=== PATIENT | male | born 1995 | race Caucasian/White ===

== ENCOUNTER 2022-12-19 13:23 | Outpatient (AMB) | payer OTHER, SELFPAY ==
--- NOTE | 2022-12-19 13:25 | MHC.PC.OV ---
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 Allergies No Known Allergies Allergy (Verified 12/19/22 13:27) Medication List - Last Reconciled 12/19/22 by Amanda Arroyo MD No Known Home Meds Tobacco use date assessed: 12/19/22 Dental Screening Dental Screen Date: 12/19/22 Did you have a dental visit in the last 12 months?: Yes Did you have a dental problem in the last 6 months where you did not have access to dental care?: No Was dental information given to patient?: Patient has dentist 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 Patient says that he is required to she at work. 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 Lab order placed to be done fasting patient have a family history of diabetes and heart disease His blood pressure is 132/86 we will keep an eye [facility] Social History Housing: House Patient Tobacco Use Status: Never used Tobacco e-Cigarette/Vaping Use: Former Use service: Yes Current occupational status: employed Cognitive needs: No Hearing needs: No Vision needs: No Questionnaire PHQ-9 Over the last 2 weeks, how often have you been bothered by any of the following problems? 1. Little interest or pleasure in doing things: not at all 2. Feeling down, depressed, or hopeless: not at all 3. Trouble falling or staying asleep, or sleeping too much: several days 4. Feeling tired or having little energy: several days 5. Poor appetite or overeating: not at all 6. Feeling bad about yourself - or that you are a failure or have let yourself or your family down: not at all 7. Trouble concentrating on things, such as reading the newspaper or watching television: not at all 8. Moving or speaking so slowly that other people could have noticed. Or the opposite - being so fidgety or restless that you have been moving around a lot more than usual: not at all 9. Thoughts that you would be better off or of hurting yourself in some way: not at all Total score: 2 Depression Screening Interpretation: Negative Depression Screening Done: Yes 11552 - PHQ-9 Billing: Yes Source: Developed by Drs. Eliazar Salazar, Gladys Moctezuma, Norbert Byrd and colleagues, with an educational julee from [employer]. Thrive Questionnaire Date Thrive assessed: 12/19/22 I am a: Patient What is your living situation today?: I have a steady place to live Within the past 12 months, did the food you bought not last and you didn't have the money to get more?: Never true Within the past 12 months, did you worry whether your food would run out before you got money to buy more?: Never true Do you have trouble paying for medicines?: No Do you have trouble getting transportation to medical appointments?: No Do you have trouble paying your heating and electricity bill?: No Do you have trouble taking care of your child, family member or friend?: No Do you have trouble with day-to-day activities such as bathing, preparing meals, shopping, managing finances, etc.?: No Are you currently unemployed and looking for a job?: No Are you interested in more education?: Yes AUDIT C Alcohol Use Questionnaire (AUDIT-C) 1. How often do you have a drink containing alcohol?: Monthly or less 2. How many drinks containing alcohol do you have on a typical day when you are drinking?: 1 or 2 3. How often do you have six or more drinks on one occasion?: Never Total Score: 1 Score Reviewed/Action Taken: Yes CHIN-7 AMB Questionnaire CHIN-7 Date CHIN - 7 assessed: 12/19/22 Feeling nervous, anxious, or on edge: 0 = Not at all Not being able to stop or control worryin = Not at all Worrying too much about different things: 0 = Not at all Trouble relaxin = Not at all Being so restless that it is hard to sit still: 0 = Not at all Becoming easily annoyed or irritable: 0 = Not at all Feeling afraid as if something awful might happen: 0 = Not at all Total CHIN-7 score (0-4 normal; 5-9 mild; 10-14 moderate; 15-21 severe): 0 Source: Developed by Drs. Eliazar Salazar, Gladys Moctezuma, Norbert Byrd and colleagues, with an educational julee from [employer]. CHIN-7 Assessment Billing CHIN-7 Assessment Tool: CHIN-7 Assessment 45477 Review of Systems Const Denies chills, Denies fever(s) and Denies headache(s) Eyes Denies blurry vision ENT Denies headache(s), Denies nasal discharge, Denies nasal obstruction, Denies odynophagia and Denies sinus pain Card Denies chest pain at rest and Denies chest pain with activity Resp Denies cough and Denies hemoptysis GI Denies diarrhea, Denies odynophagia, Denies vomiting and Denies hematemesis Reports as per HPI Musc Denies abnormal gait Skin/Breast Reports as per HPI Neuro Denies Neuro-related abnormal movements, Denies Abnormal speech present, Denies abnormal gait, Denies headache(s) and Denies Sensory deficit (Neuro) Psych Denies mood swings and Denies paranoia Endo Reports as per HPI Joaquin/Lymph Reports as per HPI Aller/Immun Reports as per HPI Physical exam (Primary Care) Vital Signs: Last Vital Signs Pulse 60 12/19/22 13:26 BP 132/86 12/19/22 13:26 Pulse Ox 96 12/19/22 13:26 Oxygen Delivery Method Room Air 12/19/22 13:26 BMI result Body Mass Index 26.2 Tobacco/Smoking Status: Tobacco use Status Tobacco use date assessed 12/19/22 12/19/22 13:29 Patient Tobacco Use Status Never used Tobacco 12/19/22 13:29 e-Cigarette/Vaping Use Former Use 12/19/22 13:29 PHQ-9: PHQ-9 Score PHQ-9: Total score 2 12/19/22 13:58 Depression Screening Interpretation: Negative Thrive Assessment: Date of Thrive Assessment Date Thrive assessed 12/19/22 12/19/22 13:58 Const General: cooperative, comfortable and no acute distress Orientation/consciousness: patient oriented x3 HENMT Head: Yes normocephalic and Yes atraumatic Eyes General: appearance normal, both eyes and all related structures Pupils: Equal, round and reactive pupils present EOM: EOMs intact bilaterally Neck Neck: Yes supple and No lymphadenopathy Thyroid: Thyroid normal Lymphatic: no lymphadenopathy noted Resp Effort & Inspection: normal respiratory effort and able to speak in complete sentences Auscultation: clear to auscultation bilaterally Cardio Heart sounds: S1 normal heart sound present and S2 normal heart sound present GI Palpation (GI): Soft to palpation and nontender Auscultation: normal bowel sounds General: Yes no CVA tenderness Back/Spine/Pelvis Back: no CVA tenderness Skin Other: Dermatitis rash over chin and cheeks, different sizes of moves in the back some irregular General skin exam: elasticity normal and turgor normal Neuro General: patient oriented x3 and gait normal Cranial nerves: Yes Equal, round and reactive pupils present Speech: No Abnormal speech present Sensory Exam: No Sensory deficit (Neuro) Coordination: tandem gait normal and Romberg test negative Extrem General: Yes normal exam except as noted and No edema Assessment and Plan Assessment & Plan (1) Encounter for general adult medical examination with abnormal findings: Code(s): Z00.01 - Encounter for general adult medical examination with abnormal findings (2) Dermatitis of face: Code(s): L30.9 - Dermatitis, unspecified (3) Change in mole: Code(s): D22.9 - Melanocytic nevi, unspecified (4) Family history of diabetes mellitus: Code(s): Z83.3 - Family history of diabetes mellitus (5) Family history of heart disease: Code(s): Z82.49 - Family history of ischemic heart disease and other diseases of the circulatory system Plan Patient is 27-year-old gentleman came in today for his initial establish care visit and physical examination Patient has developed dermatitis on his face secondary to shaving he is requesting a letter to be exempted from shaving. Patient says that he is required to she at work. 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 Lab order placed to be done fasting patient have a family history of diabetes and heart disease His blood pressure is 132/86 we will keep an eye Orders: Orders Complete Blood Count Auto Diff Today L30.9 - Dermatitis, unspecified, Z00.01 - Encounter for general adult medical examination with abnormal findings, Z82.49 - Family history of ischemic heart disease and other diseases of the circulatory system, Z83.3 - Family history of diabetes mellitus Lipid Panel Today L30.9 - Dermatitis, unspecified, Z00.01 - Encounter for general adult medical examination with abnormal findings, Z82.49 - Family history of ischemic heart disease and other diseases of the circulatory system, Z83.3 - Family history of diabetes mellitus Comprehensive [place]. Panel Fast Today L30.9 - Dermatitis, unspecified, Z00.01 - Encounter for general adult medical examination with abnormal findings, Z82.49 - Family history of ischemic heart disease and other diseases of the circulatory system, Z83.3 - Family history of diabetes mellitus Referrals Dermatology Referral D22.9 - Melanocytic nevi, unspecified, Z12.83 - Encounter for screening for malignant neoplasm of skin Coding Level of Care Code New Pt Prev Care 18-39yr([id number] Diagnoses Encounter for general adult medical examination with abnormal findings Z00.01 Dermatitis of face L30.9 Change in mole D22.9 Family history of diabetes mellitus Z83.3 Family history of heart disease Z82.49 Additional Codes CHIN-7 Assessment Billing - CHIN-7 Assessment Tool: CHIN-7 Assessment 18763 ([id number])
[2022-12-19 13:26] VITALS: BP 132/86; PULSE 60; O2SAT 96; BMI 26.2
== END 2022-12-19 14:30 | disposition home or self-care (01) ==
PROVIDERS: PCP Internal Medicine; Visit Provider Internal Medicine
DX: Z00.01 Encounter for general adult medical examination with abnormal findings (principal); L30.9 Dermatitis, unspecified; D22.9 Melanocytic nevi, unspecified; Z83.3 Family history of diabetes mellitus; Z82.49 Family history of ischemic heart disease and other diseases of the circulatory system
CPT/HCPCS: 99385

== ENCOUNTER 2024-02-05 13:57 | Outpatient (AMB) | payer OTHER, SELFPAY ==
[2024-02-05 13:59] VITALS: BP 118/78; PULSE 74; O2SAT 98; BMI 27.9
--- NOTE | 2024-02-05 13:59 | MHC.PC.OV ---
Vital Signs 02/05/24 13:59 Height 6 ft 2 in Weight 217 lb 6 oz BMI 27.9 BP 118/78 Blood Pressure Location Rt brachial Position Sitting Pulse 74 Pulse Source Pulse Oximeter Pulse Oximetry (%) 98 Oxygen Delivery Method Room Air Intake Visit Reasons: Annual PE Allergies No Known Allergies Allergy (Verified 02/05/24 13:59) Medication List - Last Reconciled 02/05/24 by Amanda Arroyo MD No Known Home Meds Tobacco use date assessed: 02/05/24 Dental Screening Dental Screen Date: 02/05/24 Did you have a dental visit in the last 12 months?: Yes Did you have a dental problem in the last 6 months where you did not have access to dental care?: No Was dental information given to patient?: Patient has dentist HPI Annual PE HPI Details Chief Complaint The patient reports experiencing chronic fatigue and fragmented sleep for several months. Came in today for physical exam Health Maintenance - Immunizations up-to-date, including tetanus - Discussion on improving sleep hygiene - Plan for laboratory evaluations including fasting blood tests to assess vitamin deficiencies and renal and hepatic function - Referral to dermatology for evaluation of multiple nevi Assessment and Plan 28-year-old male with a history of fragmented sleep patterns and significant fatigue presenting for a wellness visit. 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 Current sleep pattern involves fragmented sleep with interruptions. No current symptoms of nausea, vomiting, diarrhea, or respiratory and cardiac concerns. Immunizations are up-to-date. Notable presence of multiple nevi potentially requiring dermatology evaluation. 1. Multiple Nevi The patient noted a family history of multiple nevi, observing a potential increase in size over time. A dermatology referral has been issued to evaluate and assess for any atypical features requiring intervention. 2. Fatigue The patient reports feeling consistently fatigued due to a potential lack of adequate sleep. A change in work shift may have compounded sleep disruption. Labs including fasting tests will be conducted to rule out nutrient deficiencies or organ dysfunction. Sleep hygiene improvements were discussed. 3. Sleep Disturbance The patient has altered sleep schedules with no consistent eight-hour rest period. Suggestions include improving sleep hygiene and consistency in sleep and wake times given his new shift schedule. Document any further concerns with nocturnal waking after allowing time for sleep adjustments. Patient Instructions - Implement sleep hygiene practices, aiming for a consistent sleep schedule based on current work requirements. - Fast for at least 10 hours before the scheduled blood test to ensure accurate results. - Follow up with the dermatology referral for nevi assessment. - Provide email details for access to the patient portal to receive lab instructions and results notification. - Await communication for further instructions regarding dermatology consults and any lab abnormalities. [facility] Social History Housing: House Patient Tobacco Use Status: Never used Tobacco e-Cigarette/Vaping Use: Former Use service: Yes Current occupational status: employed Cognitive needs: No Hearing needs: No Vision needs: No Questionnaire PHQ-9 Over the last 2 weeks, how often have you been bothered by any of the following problems? 1. Little interest or pleasure in doing things: not at all 2. Feeling down, depressed, or hopeless: not at all 3. Trouble falling or staying asleep, or sleeping too much: several days 4. Feeling tired or having little energy: several days 5. Poor appetite or overeating: several days 6. Feeling bad about yourself - or that you are a failure or have let yourself or your family down: not at all 7. Trouble concentrating on things, such as reading the newspaper or watching television: not at all 8. Moving or speaking so slowly that other people could have noticed. Or the opposite - being so fidgety or restless that you have been moving around a lot more than usual: not at all 9. Thoughts that you would be better off or of hurting yourself in some way: not at all Total score: 3 Depression Screening Interpretation: Negative Depression Screening Done: Yes 67406 - PHQ-9 Billing: Yes Source: Developed by Drs. Eliazar Salazar, Gladys Moctezuma, Norbert Byrd and colleagues, with an educational julee from [employer]. Thrive Questionnaire Date Thrive assessed: 02/05/24 I am a: Patient What is your living situation today?: I have a steady place to live Within the past 12 months, did the food you bought not last and you didn't have the money to get more?: Never true Within the past 12 months, did you worry whether your food would run out before you got money to buy more?: Never true Do you have trouble paying for medicines?: No Do you have trouble getting transportation to medical appointments?: No Do you have trouble paying your heating and electricity bill?: No Do you have trouble taking care of your child, family member or friend?: No Do you have trouble with day-to-day activities such as bathing, preparing meals, shopping, managing finances, etc.?: No Are you currently unemployed and looking for a job?: No Are you interested in more education?: I choose not to answer this question Please select the resources that you would like help with: None Currently or been in a relationship where the following occur: No concerns reported THRIVE Score: 0 AUDIT C Alcohol Use Questionnaire (AUDIT-C) 1. How often do you have a drink containing alcohol?: Monthly or less 2. How many drinks containing alcohol do you have on a typical day when you are drinking?: 1 or 2 3. How often do you have six or more drinks on one occasion?: Less than monthly Total Score: 2 Score Reviewed/Action Taken: Yes CHIN-7 AMB Questionnaire CHIN-7 Date CHIN - 7 assessed: 02/05/24 Feeling nervous, anxious, or on edge: 0 = Not at all Not being able to stop or control worryin = Not at all Worrying too much about different things: 0 = Not at all Trouble relaxin = Not at all Being so restless that it is hard to sit still: 0 = Not at all Becoming easily annoyed or irritable: 0 = Not at all Feeling afraid as if something awful might happen: 0 = Not at all Total CHIN-7 score (0-4 normal; 5-9 mild; 10-14 moderate; 15-21 severe): 0 Source: Developed by Drs. Eliazar Salazar, Gladys Moctezuma, Norbert Byrd and colleagues, with an educational julee from [employer]. CHIN-7 Assessment Billing CHIN-7 Assessment Tool: CHIN-7 Assessment 55046 Review of Systems Const Denies chills, Denies fever(s) and Denies headache(s) Eyes Denies blurry vision ENT Denies headache(s), Denies nasal discharge, Denies nasal obstruction, Denies odynophagia and Denies sinus pain Card Denies chest pain at rest and Denies chest pain with activity Resp Denies cough and Denies hemoptysis GI Denies diarrhea, Denies odynophagia, Denies vomiting and Denies hematemesis Reports as per HPI Musc Denies abnormal gait Skin/Breast Reports as per HPI Neuro Denies Neuro-related abnormal movements, Denies Abnormal speech present, Denies abnormal gait, Denies headache(s) and Denies Sensory deficit (Neuro) Psych Denies mood swings and Denies paranoia Endo Reports as per HPI Joaquin/Lymph Reports as per HPI Aller/Immun Reports as per HPI Physical exam (Primary Care) Vital Signs: Last Vital Signs Pulse 74 02/05/24 13:59 BP 118/78 02/05/24 13:59 Pulse Ox 98 02/05/24 13:59 Oxygen Delivery Method Room Air 02/05/24 13:59 BMI result Body Mass Index 27.9 Tobacco/Smoking Status: Tobacco use Status Tobacco use date assessed 02/05/24 02/05/24 14:01 Patient Tobacco Use Status Never used Tobacco 02/05/24 14:01 e-Cigarette/Vaping Use Former Use 02/05/24 14:01 PHQ-9: PHQ-9 Score PHQ-9: Total score 3 02/05/24 14:01 Depression Screening Interpretation: Negative Thrive Assessment: Date of Thrive Assessment Date Thrive assessed 02/05/24 02/05/24 14:01 Currently or been in a relationship where the following occur: No concerns reported Const General: cooperative, comfortable and no acute distress Orientation/consciousness: patient oriented x3 HENMT Head: Yes normocephalic and Yes atraumatic Eyes General: appearance normal, both eyes and all related structures Pupils: Equal, round and reactive pupils present EOM: EOMs intact bilaterally Neck Neck: Yes supple and No lymphadenopathy Thyroid: Thyroid normal Lymphatic: no lymphadenopathy noted Resp Effort & Inspection: normal respiratory effort and able to speak in complete sentences Auscultation: clear to auscultation bilaterally Cardio Heart sounds: S1 normal heart sound present and S2 normal heart sound present GI Palpation (GI): Soft to palpation and nontender Auscultation: normal bowel sounds General: Yes no CVA tenderness Back/Spine/Pelvis Back: no CVA tenderness Skin Other: Multiple nevi in the back different shape and size General skin exam: elasticity normal and turgor normal Neuro General: patient oriented x3 and gait normal Cranial nerves: Yes Equal, round and reactive pupils present Speech: No Abnormal speech present Sensory Exam: No Sensory deficit (Neuro) Coordination: tandem gait normal and Romberg test negative Extrem General: Yes normal exam except as noted and No edema Coding Level of Care Code Est Pt Level 3 (44314) Est Pt Prev Care 18-39y(66652) Diagnoses Encounter for general adult medical examination with abnormal findings Z00.01 Tired R53.83 Lack of adequate sleep Z72.820 Skin cancer screening Z12.83 Additional Codes CHIN-7 Assessment Billing - CHIN-7 Assessment Tool: CHIN-7 Assessment 65569 ([id number]) PHQ-9 - 76548 - PHQ-9 Billing: Yes ([id number]) Assessment & Plan Assessment & Plan (1) Encounter for general adult medical examination with abnormal findings: Code(s): Z00.01 - Encounter for general adult medical examination with abnormal findings Category: Medical (2) Tired: Code(s): R53.83 - Other fatigue Category: Medical (3) Lack of adequate sleep: Code(s): Z72.820 - Sleep deprivation Category: Social Hx (4) Skin cancer screening: Code(s): Z12.83 - Encounter for screening for malignant neoplasm of skin Category: Medical Plan Chief Complaint The patient reports experiencing chronic fatigue and fragmented sleep for several months. Came in today for physical exam Health Maintenance - Immunizations up-to-date, including tetanus - Discussion on improving sleep hygiene - Plan for laboratory evaluations including fasting blood tests to assess vitamin deficiencies and renal and hepatic function - Referral to dermatology for evaluation of multiple nevi Assessment and Plan 28-year-old male with a history of fragmented sleep patterns and significant fatigue presenting for a wellness visit. 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 Current sleep pattern involves fragmented sleep with interruptions. No current symptoms of nausea, vomiting, diarrhea, or respiratory and cardiac concerns. Immunizations are up-to-date. Notable presence of multiple nevi potentially requiring dermatology evaluation. 1. Multiple Nevi The patient noted a family history of multiple nevi, observing a potential increase in size over time. A dermatology referral has been issued to evaluate and assess for any atypical features requiring intervention. 2. Fatigue The patient reports feeling consistently fatigued due to a potential lack of adequate sleep. A change in work shift may have compounded sleep disruption. Labs including fasting tests will be conducted to rule out nutrient deficiencies or organ dysfunction. Sleep hygiene improvements were discussed. 3. Sleep Disturbance The patient has altered sleep schedules with no consistent eight-hour rest period. Suggestions include improving sleep hygiene and consistency in sleep and wake times given his new shift schedule. Document any further concerns with nocturnal waking after allowing time for sleep adjustments. Patient Instructions - Implement sleep hygiene practices, aiming for a consistent sleep schedule based on current work requirements. - Fast for at least 10 hours before the scheduled blood test to ensure accurate results. - Follow up with the dermatology referral for nevi assessment. - Provide email details for access to the patient portal to receive lab instructions and results notification. - Await communication for further instructions regarding dermatology consults and any lab abnormalities. Orders: Orders Complete Blood Count Auto Diff Today R53.83 - Other fatigue, Z00.01 - Encounter for general adult medical examination with abnormal findings, Z72.820 - Sleep deprivation TSH reflex Free T4 Today R53.83 - Other fatigue, Z00.01 - Encounter for general adult medical examination with abnormal findings, Z72.820 - Sleep deprivation UA CC w/rflx Micro + Cult Today R53.83 - Other fatigue, Z00.01 - Encounter for general adult medical examination with abnormal findings, Z72.820 - Sleep deprivation Testosterone, Total Today R53.83 - Other fatigue Comprehensive [place]. Panel Fast Today R53.83 - Other fatigue, Z00.01 - Encounter for general adult medical examination with abnormal findings, Z72.820 - Sleep deprivation Lipid Panel Today R53.83 - Other fatigue, Z00.01 - Encounter for general adult medical examination with abnormal findings, Z72.820 - Sleep deprivation Vitamin D 25-OH (D2 and D3) Today R53.83 - Other fatigue, Z00.01 - Encounter for general adult medical examination with abnormal findings, Z72.820 - Sleep deprivation Vitamin B12 Today R53.83 - Other fatigue, Z00.01 - Encounter for general adult medical examination with abnormal findings, Z72.820 - Sleep deprivation Referrals Dermatology Referral Z12.83 - Encounter for screening for malignant neoplasm of skin
--- OUTSIDE RECORDS SUMMARY | 2024-02-11 20:41 | XMS_ITS | Continuity of Care Document ---
Author Name [facility] Organization [facility] Care Team Providers Care Director Digital Catalogue Name Role Phone [facility] Unavailable Unavailable Immunizations Combined list of available immunizations from the Department of Defense and Veterans Affairs facilities. Immunization Series Date Given Administered By Site Reaction Lot Number CVX Code Drug Administrative Analyst Status Comments Source influenza virus vaccine, inactivated 2023 KAYLEEN S Shoul keely, left (delt oid) [id number] [employer] complet ed influenza virus vaccine, inactivat ed 12/07/23 Given 8344R-4 39 AMDS influenza, injectable, quadrivalent- pf 2022 MICHELLEACASC IO [id number] 150 complet ed Result Comment: Route: Unknown Manufactu rer: OT (SEQ) 8344R-4 39 AMDS influenza, injectable, quadrivalent- pf 2021 MICHELLEACASC IO [id number] 150 complet ed Result Comment: Route: Unknown Manufactu rer: OT (SKB) 8344R-4 39 AMDS COVID-19, mRNA, LNP-S, PF, 30 mcg/0.3 mL dose, nataliia-sucrose 2021 [employer]OXO, [employer] (PFR) Not Given COVID-19, mRNA, LNP-S, PF, 30 mcg/0.3 mL dose, nataliia-sucr ose DoD SARS-CoV-2 mRNA(toziname hzy-zfjg-fgr) vac 2021 MICHELLEACASC IO 217 complet ed Result Comment: Unit: Unknown Manufactu rer: [employer]u [employer] [place] (PFR) 8344R-4 39 AMDS Tdap 2021 BOGDASARIAN, () Not Given Tdap DoD influenza virus vaccine, inactivated 2020 MICHELLEACASC IO [id number] 88 complet ed Result Comment: Route: Unknown Manufactu rer: OT (SEQ) 8344R-4 39 AMDS COVID Vaccine Pfizer 2020 MICHELLEACASC IO [id number] 208 complet ed Result Comment: Route: Unknown Manufactu rer: [facility] (PFR) 8344R-4 39 AMDS COVID Vaccine Pfizer 2020 [facility] IO [id number] 208 complet ed Result Comment: Route: Unknown Manufactu rer: [facility] (PFR) 8344R-4 39 AMDS influenza, injectable, quadrivalent- pf 2019 [facility] IO [id number] 150 complet ed Result Comment: Route: Unknown Manufactu rer: [facility] (SEQ) 8344R-4 39 AMDS hepatitis A-hepatitis B vaccine 2019 [facility] IO [id number] 104 complet ed Result Comment: Route: Unknown Manufactu rer: [facility] (SKB) 8344R-4 39 AMDS measles/mumps /rubella virus vaccine 2019 [id number] [employer] Inc complet ed measles/m umps/rube lla virus vaccine 07/09/19 Given Ambulat ory Pharmac y hepatitis A-hepatitis B vaccine 2019 [id number] GlaxoSmithKli ne complet ed hepatitis A-hepatit is B vaccine 07/09/19 Given Ambulat ory Pharmac y measles/mumps /rubella virus vaccine 2019 [id number] [employer] Inc complet ed measles/m umps/rube lla virus vaccine 06/09/19 Given Ambulat ory Pharmac y hepatitis A-hepatitis B vaccine 2019 [id number] GlaxoSmithKli ne complet ed hepatitis A-hepatit is B vaccine 06/09/19 Given Ambulat ory Pharmac y tetanus, diphtheria, acellular pertu is 2019 [id number] 115 GlaxoSmithK[employer] ne complet ed tetanus, diphtheri a, acellular pertussis 05/23/19 Given Ambulat ory Pharmac y poliovirus vaccine, inactivated 2019 [id number] 10 sanofi pasteur complet ed polioviru s vaccine, inactivat ed 05/23/19 Given Ambulat ory Pharmac y adenovirus vaccine, live 2019 [id number] 143 Teva Pharm[employer] ls complet ed adenoviru s vaccine, live 05/23/19 Given Ambulat ory Pharmac y meningococcal A,C,Y,W-135 (MCV4P) 2019 [id number] 114 sanofi pasteur complet ed meningoco ccal A,C,Y,W-1 35 (MCV4P) 05/23/19 Given Ambulat ory Pharmac y influenza, injectable, quadrivalent- pf 2019 [id number] 150 Se[employer] complet ed influenza , injectabl e, quadrival ent-pf 03/15/19 Given Ambulat ory Pharmac y Results Combined list of recent chemistry, hematology and other laboratory results from [facility] of [facility] and [facility] [employer], ranging from 15 months to all on record, depending upon the facility. Order Name Results Value Reference Range Date Interpretation Specimen Comments Source Infectio us Disease HIV-1/O/2 Non-Reac tive 1 (05/11/23 2:26 PM) 05/10 N Interpretiv e Data: INTERPRETAT ION: This method is a screening procedure for the detection of HIV p24 Antigen and Antibodies to HIV-1, including Group O, and/or HIV-2. NON-REACTIV E: HIV-1 antigen and HIV-1 / HIV-2 antibodies were not detected. No laboratory evidence of HIV infection. A negative test result does not exclude the possibility of exposure to or infection with HIV. HIV antibodies and/or p24 antigen may be undetectabl e in some stages of the infection and in some clinical conditions. If acute HIV infection is suspected, consider submitting another specimen to a reference laboratory for HIV-1 RNA. SCREEN REACTIVE - CONFIRMATIO N TO FOLLOW: Possible presence of HIV-1antibo dies, HIV-2 antibodies and/or HIV-1 p24 antigen. Specimen will reflex to the confirmatio n testing that fulfills the Center for Disease Control and Prevention' s HIV diagnostic algorithm. Refer to [facility] Lab Guide for additional information : [email or web address] x Testing performed by Ken[facility] j[facility] Libbycella jillian Sendouts Repository Sample Received (05/11/23 2:26 PM) 05/10 N [facility] Vital Signs Combined list of inpatient and outpatient Vital Signs from [facility], ranging from 12 months to all on record, depending upon the facility. Vital Sign Value Date Comments Source No data available for this section Ambulatory Pharmacy Encounters Combined list of: 1) Encounters from Department of Veterans Affairs facilities going back up to thelast 18 months. 2) Encounters from the Department of [facility] facilities going back up to 280 months. Location Location Details Encounter Type Encounter Number Reason For Visit Attending Provider ADM Date DC Date Status Disposition Source 8344R-439 AMDS Outpatient [id number] KARTIK MEDINA 05/10 Discharge Disposition: Home or Self Care 8344R-4 39 AMDS 8344R-439 AMDS Clinic [id number] KARTIK MEDINA 09/25 Discharge Disposition: Home or Self Care 8344R-4 39 AMDS 8344R-439 AMDS Care Not Rendered [id number] 12/06 Discharge Disposition: Home or Self Care 8344R-4 39 AMDS 8344R-439 AMDS Dental [id number] DUNG MYDOAN 12/06 Discharge Disposition: Home or Self Care 8344R-4 39 AMDS 8344R-439 AMDS Preclinic [id number] 02/08 8344R-4 39 AMDS Procedures Combined list of: 1) Procedures from Department of Veterans Affairs facilities going back up to thelast 18 months, not all [place] non-surgical procedures are included; 2) All procedures from the Department of [facility] facilities. Procedure Procedure Type Code Date Perfomer Comments Sourc e No data available for this section Ambulatory P harmacy Social History Combined list of available smoking, tobacco, and other social history from Department of Defense and Veterans Affairs facilities. Social History Type Response Date Comment Sourc e Male 11/23/2019 Ambulatory Pha rmacy This section is an empty soc ial history section. DoD Sexual Orientation Amb[facility] tory Pharmacy Gender identity [facility] Assessment and Plan Combined list of future care activities from Department of Defense and Veterans Affairs facilities (e.g., assessment and plan notes, appointments, orders, and referrals). Additional future care activities may be listed in the Plan of Care section. Result Assessment and Plan Date Source Assessment and Plan Extracted from:Title : Audio Author: SUKHWINDER HOLM Date: 12/07/23 mbr came in for appt Extracted from:Title: PHA Author: SUKHWINDER HOLM Date: 09/26/23 mbr came in for appt Addendum by JOLYNN COLE on September 26, 2023 10:48 EDT ?Vitals: Blood Pressure:???120/73 Heart Rate:67 Height:188 Weight:206 BMI: Medications: None Chronic Problems: None SF 507: _ Comments: None Addendum by ERMIAS WARNER on September 26, 2023 11:37 EDT Chief Complaint: Member here for annual PHA.?No acute complaints.?IMR?green. HEENT:?Normal Joints:?Normal Lungs:?Normal Heart:?Normal Comments: KATIE - Privacy ASIMS -PHAQ2 ANNUAL PERIODIC HEALTH ASSESSMENT I. SENIOR PROPERTY ACCOUNTANT INFORMATION AND DEMOGRAPHICS (SMI) 1. Last Name: ALBERTO 2. First Name: NICHOLAS 3. Middle Name: NUSRAT 4. Assessment Date: 5. : 6. Age: 28 7. Gender: M 8. DoD ID Number: [id number] 9. Service Branch: [employer] 10. 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 Unit Name: [address] 14. Duty Station/Location: [place] 15. UIC: [id number] 16. Is this your first Periodic Health Assessment (PHA)?: N 17. Are you enrolled in a secure messaging system with your health care provider?: 18. Current contact information: Preferred Method: Day Time Phone DSN: Day Time Phone: [phone] Night Time Phone: [phone] Email 1: [email or web address] Email 2: Address: [address] [place] [address]: [facility]: [place] Zip Code: [address] 19. Point of contact who can always reach you: Name: Enoc Heath Phone 1: [phone] Phone 2: EMAIL: Address: [address] [place] [address]: [facility]: [place] Zip Code: [address] II. DEPLOYMENT INFORMATION (DEP) 1. [ 0 ] Total number of deployments in the PAST 5 YEARS 4. [ N ] Are you going to deploy within the NEXT 120 DAYS? III. 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 [ No ] Does your specialty require an operational duty physical exam? 4. [ Don't Know ] Are you currently enrolled in a medical surveillance/occupational health program?: Don't Know IV. MEDICAL CONDITIONS (LETY): 1. Since your last PHA, have you experienced any of the following health conditions, and if so, what is your status? [ ] Conditions with no medical care [ ] Conditions with medical care, but no longer under treatment [ ] Conditions with medical care, and NOW under treatment 2. Since your last PHA, have you experienced any of the following health conditions, and if so, what is your status? [ ] Conditions with no medical care [ ] Conditions with medical care, but no longer under treatment [ ] Conditions with medical care, and NOW under treatment 3. For any condition marked YES in question 1 or 2, are you currently on any profile or limited duty for that condition? [ ] Conditions 4. [ No ] Have you been based or stationed at a location where an open burn pit was used? 5. [ No ] Have you been exposed to toxic airborne chemicals or other airborne contaminants? 8. Have you had any surgery since your last PHA?: No 10.a. [ No ] Since your last PHA, has a health care provider recommended surgery(s) that you have not had? 11.a. [ No ] Do you currently require hearing aids, special medical supplies, CPAP, adaptive equipment, assistive technology devices, and/or other special accommodations? 12.a. [ No ] Do you have a waiver or profile for any part of your Service's physical fitness test? 13.a. [ No ] Do you have any problems wearing a gas mask, ballistic helmet, body armor, and/or chemical/biological protective garments? 14.a. [ No ] Have you ever been told by a health care provider that you SHOULD NOT receive an immunization for medical reasons? 15.a. [ No ] Do you have a permanent profile or an Assignment Limitation Code C? 16.a. [ No ] Are you on a temporary profile or limited duty? 17. [ 0 ] During the PAST 2 years, how many times have you been placed on a temporary profile or on limited duty? V. INDIVIDUAL MEDICAL READINESS (IMR) 1. [ No ] Do you have any allergies? 3. [ Not required ] Do you have red medical warning dog tags? 4. [ No ] Do you wear corrective lenses? . BEHAVIORAL HEALTH (MHA) 1. a. [ None ] Over the PAST MONTH, what major life stressors have you experienced that are a cause of significant concern or make it difficult for you to do your work, take care of things at home, or get along with other people (for example, serious conflicts with others, relationship problems, or a legal, disciplinary or financial problem)? 2. a. [ No ] In the PAST YEAR did you receive care for any mental health condition or concern such as, but not limited to post traumatic stress disorder (PTSD), depression, anxiety disorder, alcohol abuse or substance abuse? 3. [ None ] What prescription or over-the counter medications (including herbals/supplements) for sleep, pain, combat stress, or a mental health problem are you CURRENTLY taking? 4. a. [ No ] In the past 12 months, have you gambled? 5. a. [ Monthly or less ] How often do you have a drink containing alcohol? 5. b. [ 1 or 2 ] How many drinks containing alcohol do you have on a typical day when you are drinking? 5. c. [ Never ] How often do you have six or more drinks on one occasion? 6. Have you ever had any experience that was so frightening, horrible, or upsetting that in the PAST MONTH, you: 6. a. [ No ] Have had nightmares about it or thought about it when you did not want to? 6. b. [ No ] Tried hard not to think about it or went out of your way to avoid situations that remind you of it? 6. c. [ No ] Were constantly on guard, watchful or easily startled? 6. d. [ No ] Kenton numb or detached from others, activities, or your surroundings? 6. e. [ Not answered ] Kenton guilt or unable to stop blaming yourself or others for the event(s) or any problems the event(s) may have caused? 7. Over the LAST 2 WEEKS, how often have you been bothered by the following problems? 7. a. [ Not at all ] Little interest or pleasure in doing things 7. b. [ Not at all ] Feeling down, depressed, or hopeless 8. [ No ] Would you like to schedule an appointment with a health care provider to discuss any health concern(s)? 9. [ No ] Are you interested in receiving information or assistance for a stress, emotional or alcohol concern? 10. [ No ] Are you interested in receiving assistance for a family or relationship concern? 11. [ No ] Would you like to schedule a visit with a assembly line machine operator, mental health care provider, or a community support counselor? VII. FAMILY HISTORY AND LIFESTYLE (LIF) 1. [ Very Good ] Overall, how would you rate your health during the PAST MONTH? 2. [ Heart-related conditions, Diabet ] Member indicates that family members have the following problems 4. The following family members has/had a history of heart-related conditions: High Blood Pressure: Father Cardiac Arrhythmia: Father 5. The following family members has/had a history of diabetes: Type I: Father 6. [ Yes ] I participate in moderate intensity physical activites at least 2.5 hours, or a combination of moderate and vigorous aerobic activites, for at least 75 minutes per week. 7. In a typical week, I do physical activities specifically designed to STRENGTHEN my muscles: [ 2 ] Day(s) per week 8. [ None ] What prescriptions or gaup-npg-zqawddp medications are you CURRENTLY taking for health problems on a ROUTINE BASIS? 9. Which of the following products have you taken since your last PHA: Protein Supplements/Creatine: Once a week [place]-3 Supplements: Less than once a month Vitamin D: Less than once a month 11. Think about the PAST 30 DAYS. How often did you eat/drink the following foods/beverages? [ 1 or 2 servings per week ] Fruits [ 3 to 6 servings per week ] Vegetables [ 3 to 6 servings per week ] Starchy Vegetables [ 2 servings per day ] Whole Grains [ 1 or 2 servings per week ] Dairy and Calcium Containing Foods [ Rarely or Never ] Fish [ 2 servings per day ] Lean Protein [ 3 to 6 servings per week ] Sugar-Sweetened Beverages 12. [ No ] Have you had a cholesterol check by a health care partner within the PAST 5 YEARS? 13.a. In the PAST 30 DAYS, which of the following products have you used on at least one day? None 15. Which of the following best describes your past tobacco use? I used tobacco in the past, but quit in 2022 16. [ No ] Are you regularly exposed to secondhand smoke? 17. [ 5 to less than 7 hours ] During the LAST 2 WEEKS, how many hours of sleep did you get on most days? 18. [ No ] During the LAST 2 WEEKS, have you felt impaired or unable to adequately perform due to sleepiness or poor quality sleep? 19. [ No ] Have you had any unexplained weight loss or gain since your last PHA? 20. Member is at risk for sexually transmitted infections. 21. [ No ] Have you had a syphillis, chlamydia, and gonorrhea test since your last PHA? 22. Since your last PHA, what, if anything, have you and your partner used to keep from getting ? [ My partner(s) or I do not use any contraception. ] I am not actively taking steps to prevent as 23. [ No ] In the last year, have you or your partner had a scare, where you were not trying to get but were worried enough to use a home test? IX. RESERVE COMPONENT (RES) 1. [ No ] Do you have an injury, illness, Or disease which was incurred or aggravated while in a duty status since your last PHA? 4. [ Yes - ] Are you currently coverered under a health insurance policy? 5.a. [No, I have never applied for Worker's Compensation ] Do you have any current physical or mental health limitations related to a Worker's Compensation claim? 6. [ No ] Have you applied for or have you received a VA disability rating? X. OTHER MEDICAL (OTH) 1. [ 0 ] Rate the amount of pain you have had, on average, over the PAST 24 HOURS 3. [ No ] Since your last PHA, have you received care or treatment for any medical and/or mental health condition(s) from a civilian or non- facility? 5. Member acknowledged responsibility for reporting health issues. 7. [ Yes ] Woud you like to schedule an appointment with a health care provider to discuss any health concerns? XI. SEPARATION AND CHCF 1. 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 PART B. RECORD REVIEW AND RECOMMENDATIONS I. RECORD REVIEWER INFORMATION 1. Last Name: ALCANTARANICOLE MIRELES 2. First Name: DEVIKA 3. Middle Name: 4. Service Branch: [employer] 5. 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 EMAIL: [email or web address] 8. Facility: [facility] 9. Unit: [facility] 10. Address: [address] [place] [address] 11. State: [place] 12. Zip Code: [address] 13. Phone: [phone] 14. Date Record Review: II. MEDICAL SCREENING 1. 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 [ 6 feet 1 inches Date: ] in flight crew member's most recently documented height 3. [ 200 pounds Date: ] in flight crew member's most recently documented weight 4. [ 140/92 Date: ] in flight crew member's most recently documented blood pressure reading 5. [ No ] Does the in flight crew member have a history of abnormal blood pressure since their last PHA? 6. [ Yes ] Does the in flight crew member have a laboratory test of sickle cell trait documented in their permanent medical record? 7. [ No Cholesterol Test Documented ] What is the date of the in flight crew member's most recently documented cholesterol test? 9. [ No Active Medications Documented ] List of in flight crew member's active medications listed in their permanent medical record 10. [ No ] Is there a discrepancy between the active medication record review and the in flight crew member's self-reported list of medications? 11. [ No Outside Care Documented ] List documented significant care the in flight crew member has received since their last PHA from a provider OUTSIDE the Health System 12. [ No ] Is there a discrepancy between the in flight crew member's list of OUTSIDE care (from OT5), and the OUTSIDE care found in the record? 13. [ No Inside Care Documented ] List documented significant care the in flight crew member has received since their last PHA from a provider INSIDE the Health System 15. [ Not Answered ] Confirm that vaccine exemptions are listed in the medical record for each vaccine listed IV. FAMILY HISTORY AND LIFESTYLE 1. [ Yes ] Does the [id number] reflect the in flight crew member's reported family history? 2. [ Yes ] Is there a record of the in flight crew member receiving a syphillis, chlamydia and gonorrhea test since their last PHA? VII. INDIVIDUAL MEDICAL READINESS 1. [ No ] Does the in flight crew member have an Assignment Limitation Code C? 3. [ Classification: 1 ] Most recently documented dental exam 4. [ Yes ] Is the in flight crew member current on all required immunizations in the immunization tracking system? 6. Does the in flight crew member have the following laboratory tests documented in their permanent medical record? [ Yes ] HIV test within the PAST 24 months [ Yes ] G6PD results on file [ Yes ] Blood type and Rh on file [ Yes ] DNA test on file IX. ADDITIONAL RECORD REVIEWER COMMENTS 1. This record review does NOT have a need for provider notification or referral.2. Additional comments about this record review that need to be forwarded to the Health Church Worker completing PART C: RR completed. JLV does not show any significant issues. No active profiles. No deployments. No active health concerns. Date Record Review Completed: --------- PART C. HEALTH CARE PROVIDER I. MENTAL HEALTH ASSESSMENT (MHA) PROVIDER INFORMATION 1. Last Name: MARIA A 2. First Name: ERMIAS 3. Middle Name: 4. Service Branch: [employer] 5. 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 EMAIL: [email or web address] 8. Facility: [address] [place], [place] [address] 9. Unit: [address] [place], [place] [address] 10. Address: [address] [place] [address] 11. State: [place] 12. Zip Code: [address] 13. Phone: [phone] 14. Date HCP Review initiated: 1. Member marked that they did not have a concern or a difficulty with a major life stressor. 2. Address concerns identified on member questions 2 and 3. History of mental health care: N/A Member's response: Provider's comments: NA Medications: N/A Member's response: Provider's comments: NA 3. Member's AUDIT-C screening score was 1. (nothing required) 4. Member did not anup yes on two or more of questions 6a through 6e. 5. Member did not anup More than half the days or nearly every day on question 7a or 7b. 6. Suicide risk evaluation. 6. a. Ask: Over the past month, have you wished you were or wished you could go to sleep and not wake up?: No 6. b. Ask: Have you actually had any thoughts of killing yourself?: No 6. f. 1. Ask: In you lifetime, have you done anything, started to do anything, or prepared to do anything to end your life?: No 6. g. Further risk assessment comments: 7. Member states that they have not had thoughts or concerns over the past month that they might hurt or lose control with someone. 9. Summary of Provider's identified concerns needing referrals: None 11. Comments: 13. Supplemental services recommended/information provided: No supplemental services required Date MHA Certified: III. PERIODIC HEALTH ASSESSMENT (PHA) PROVIDER INFORMATION 1. Last Name: WARNER 2. First Name: ERMIAS 3. Middle Name: 4. Service Branch: [employer] 5. 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 Title: Physician (DO DARRELL) 7. EMAIL: [email or web address] 8. Facility: [facility] 9. Unit: [address] [place], [place] [address] 10. Address: [address] [place] [address] 11. State: [place] 12. Zip Code: [address] 13. Phone: [phone] 14. Date HCP Review initiated: IV. PERIODIC HEALTH ASSESSMENT PROVIDER RECOMMENDATIONS and REFERRALS 1. Provider concerns with this assessment: No issues or concerns identified V. SUMMARY AND COMMENTS 1. Additional information summarizing findings during the in flight crew member assessment: 2. Provider Comments: would like to see derm about some moles etc, otherwise no issues . INDIVIDUAL MEDICAL READINESS DISPOSITION DETERMINATION LETY: Ready DEN: Ready IMM: Ready LAB: Ready ME: Ready IMR Status: Fully Medically Ready VII. SERVICE MEDICAL DEPLOYABILITY EVALUATION INDICATED Based on your review of all documentation, is the in flight crew member medically deployable without limitations? Reference Yang 6490.07 Yes (in flight crew member DOES NOT currently have a medical condition that limits deployability) Date PHA Completed: END OF [id number] REPORT Impression:Meets?medical standards per ADALGISA 48-123/MSD. Disposition:?No AF469 changes based on this encounter.[employer]. 02/12/2024 Ambulatory Pharmacy Functional Status Combined list of recent functional and cognitive assessments recorded at [facility] [employer] [facility] Functional [place] Measurement (FIM) Scale: 1 = Total Assistance (Subject = 0% +), 2 = Maximal Assistance (Subject = 25% +), 3 = Moderate Assistance (Subject = 50% +), 4 = Minimal Assistance (Subject = 75% +), 5 = Supervision, 6 = Modified [place] (Device), 7 = Complete [place] (Timely, Safely). Assessment Date/Time Source Assessment Type Assessment Skill Assessment Score Assessment Details No data available for this section
== END 2024-02-05 15:00 | disposition home or self-care (01) ==
PROVIDERS: PCP Internal Medicine; Visit Provider Internal Medicine
DX: Z00.00 Encounter for general adult medical examination without abnormal findings (principal); R53.83 Other fatigue; Z72.820 Sleep deprivation; Z12.83 Encounter for screening for malignant neoplasm of skin

== ENCOUNTER → 2024-02-05 13:57 | Outpatient (BNVA) | payer OTHER, SELFPAY | PROVIDERS: PCP Internal Medicine; Visit Provider Internal Medicine | DX: Z00.01 Encounter for general adult medical examination with abnormal findings (principal); R53.83 Other fatigue; Z72.820 Sleep deprivation | CPT/HCPCS: 96127 ==